=== PATIENT | female | born 1980 | race Caucasian/White ===

== ENCOUNTER 2018-10-17 13:14 | Emergency (ER) | payer OTHER ==
[2018-10-17] MEDS ORDERED: ONDANSETRON ODT 4 MG TAB PO STA (13:49)
--- NOTE | 2018-10-17 13:52 | ED ---
General Adult HPI - General Chief complaint: Head Injury Stated complaint: [facility]-Head injury Time Seen by Provider: 10/17/18 13:20 Source: patient, RN notes reviewed Mode of arrival: wheelchair Limitations: no limitations - History of Present Illness Initial comments: This a 37-year-old female presents emergency Department complaining of headache and vomiting after she struck her head this morning. Patient states she bent over and there was a metal box and she hit the corner of her forehead and ever since then he's had a significant headache anteriorly and vomiting 2. Patient denies any neck injury patient denies numbness weakness. Patient states she was not dazed at the time she did not lose consciousness. Patient denies any other symptoms at this time. She states prior to this event she was not nauseous at all. - Related Data Previous Rx's Medication Instructions Recorded Ibuprofen [Motrin] 600 mg PO Q6HR PRN #40 day 06/06/16 Allergies Allergy/AdvReac Type Severity Reaction Status Date / Time No Known Allergies Allergy Verified 10/17/18 13:25 Review of Systems ROS Statement: Those systems with pertinent positive or pertinent negative responses have been documented in the HPI. ROS Other: All systems not noted in ROS Statement are negative. Past Medical History Past Medical History: Asthma Additional Past Medical History / Comment(s): MIGRAINES History of Any Multi-Drug Resistant Organisms: None Reported Past Surgical History: Orthopedic Surgery Additional Past Surgical History / Comment(s): RIGHT SHOULDER, RIGHT KNEE Past Anesthesia/Blood Transfusion Reactions: Postoperative Nausea & Vomiting ( PONV) Past Psychological History: No Psychological Hx Reported Smoking Status: Never smoker Past Alcohol Use History: Occasional Past Drug Use History: None Reported - Past Family History Mother Family Medical History: Cancer Additional Family Medical History / Comment(s): CERVICAL General Exam - General Exam Comments Initial Comments: GENERAL: Patient is well-developed and well-nourished. Patient is nontoxic and well- hydrated and is in mild distress. ENT: Neck is soft and supple. No significant lymphadenopathy is noted. Oropharynx is clear. Moist mucous membranes. Neck has full range of motion without eliciting any pain. EYES: The sclera were anicteric and conjunctiva were pink and moist. Extraocular movements were intact and pupils were equal round and reactive to light. Eyelids were unremarkable. PULMONARY: Unlabored respirations. Good breath sounds bilaterally. No audible rales rhonchi or wheezing was noted. CARDIOVASCULAR: There is a regular rate and rhythm without any murmurs gallops or rubs. ABDOMEN: Soft and nontender with normal bowel sounds. SKIN: Skin is clear with no lesions or rashes and otherwise unremarkable. NEUROLOGIC: Patient is alert and oriented x3. Cranial nerves II through XII are grossly intact. Motor and sensory are also intact. Normal speech, volume and content. Symmetrical smile. MUSCULOSKELETAL: Normal extremities with adequate strength and full range of motion. LYMPHATICS: No significant lymphadenopathy is noted PSYCHIATRIC: Normal psychiatric evaluation. Limitations: no limitations Course Vital Signs 10/17/18 13:23 Temperature 97.9 F Pulse Rate 74 Respiratory 20 Rate Blood Pressure 134/85 O2 Sat by Pulse 100 Oximetry Medical Decision Making - Medical Decision Making CT of the brain shows no acute normalities. I went back into reevaluate the patient she was feeling better and no longer nauseated after the Zofran. Disposition Clinical Impression: Closed head injury Disposition: HOME SELF-CARE Instructions: Concussion (ED) Is patient prescribed a controlled substance at d/c from ED?: No Referrals: None,Stated [Primary Care Provider] - 1-2 days Time of Disposition: 15:10
--- NOTE | 2018-10-17 14:40 | CT ---
EXAMINATION TYPE: CT brain wo con DATE OF EXAM: 10/17/2018 COMPARISON: None INDICATION: [facility]-head injury DLP: 1182.4 mGycm, Automated exposure control for dose reduction was used. CONTRAST: None CT of the brain is performed utilizing 3 mm thick sections through the posterior fossa and 3 mm thick sections through the remaining calvarium. Study is performed within 24 hours of arrival to the hosp [facility]. No abnormal hyperdensity is present to suggest an acute intracranial hemorrhage. No mass lesion is evident. No acute infarcts are evident. Ventricles and sulci are appropriate for the patient age. Paranasal sinuses and mastoid air cells within the [id number] are clear. IMPRESSIONS: 1. Normal CT Brain
[2018-10-17 15:34] VITALS: BP 128/67; PULSE 77; RESP 18; TEMP 98.7
== END 2018-10-17 15:32 | disposition home or self-care (01) ==
LOC: EC 13:14
DX: S09.90XA Unspecified injury of head, initial encounter (principal); W22.8XXA Striking against or struck by other objects, initial encounter; Y92.69 Other specified industrial and construction area as the place of occurrence of the external cause; Y99.0 Civilian activity done for income or pay
CPT/HCPCS: 70450; 99283

== ENCOUNTER → 2018-10-27 | Outpatient (CLI) | payer OTHER ==
--- NOTE | 2018-10-27 16:16 | CT ---
EXAMINATION TYPE: CT brain wo con DATE OF EXAM: 10/27/2018 COMPARISON: 10/17/2018 HISTORY: Headache and vomiting after head injury x10 days ago. CT DLP: 936.[address] of the brain was performed. The ventricles, basal cisterns and sulci overlying the cerebral convexities demonstrate a normal appe arance. There is no evidence for intracranial hemorrhage or sulcal effacement. No mass effects are seen. Osseous calvarium is intact. If symptoms persist consider MRI as clinically warranted. IMPRESSION: 1. No acute intracranial process is seen at this time.
== END | disposition home or self-care (01) ==
LOC: RADCTMAIN 15:36
PROVIDERS: ATTEND Emergency Medicine
DX: S00.03XD Contusion of scalp, subsequent encounter (principal); G44.321 Chronic post-traumatic headache, intractable; F07.81 Postconcussional syndrome
CPT/HCPCS: 70450

== ENCOUNTER → 2018-11-20 | Outpatient (CLI) | payer OTHER | END | disposition home or self-care (01) | LOC: LABWHC1 17:26 | PROVIDERS: ATTEND Psychiatry & Neurology Neurology | DX: S09.90XA Unspecified injury of head, initial encounter (principal) | CPT/HCPCS: 36415; 82565; 84520 ==

== ENCOUNTER → 2018-11-22 | Outpatient (CLI) | payer OTHER ==
--- NOTE | 2018-11-23 10:17 | MR ---
EXAMINATION TYPE: MR brain wo/w con DATE OF EXAM: 11/22/2018 COMPARISON: CT brain 10/27/2018 HISTORY: CONTUSION OF SCALP, CONCUSSION, HEADACHES TECHNIQUE: Multiplanar, multisequence images of the brain and brainstem is performed without and with IV contras t, utilizing 10 mL intravenous Gadavist . FINDINGS: Diffusion weighted images demonstrate no evidence of a recent infarct or other diffusion ab normality. There is no extra-axial fluid collection. Scattered white matter hyperintensities presen t on inversion recovery T2-weighted sequences in the periventricular and subcortical white matter, ap proximately 10-15 lesions are noted. The ventricular system and cisternal spaces are normal in size a nd appearance. The brain volume is age appropriate. Midline structures demonstrate normal morphology. The craniocervical junction appears within normal limits. Post contrast images demonstrate no abnormal enhancement. The dural venous sinuses appear pa tent. The visualized sinuses are remarkable for mucosal disease in the maxillary sinuses and ethmoid air cells and the globes are intact. IMPRESSION: Nonspecific white matter hyperintensities. Mild sinus disease.
== END ==
LOC: RADMRIMAIN 18:28
PROVIDERS: ATTEND Psychiatry & Neurology Neurology
DX: R90.89 Other abnormal findings on diagnostic imaging of central nervous system (principal)
CPT/HCPCS: 70553; A9585

== ENCOUNTER 2018-11-25 12:28 | Emergency (ER) | payer BC, OTHER ==
[2018-11-25 13:00] VITALS: RESP 18
[2018-11-25] MEDS ORDERED: diphenhydrAMINE 50 MG/ML 1 ML VIAL IVP STA (13:35)
[2018-11-25] MEDS ORDERED: SODIUM CHLORIDE 0.9% 1,000 ML IV ONE (13:35)
[2018-11-25] MEDS ORDERED: KETOROLAC 30 MG/ML 1 ML VIAL IVP STA (13:35)
[2018-11-25] MEDS ORDERED: METOCLOPRAMIDE 5 MG/ML 2 ML VIAL IVP STA (13:35)
--- NOTE | 2018-11-25 13:42 | ED ---
Headache HPI - General Chief Complaint: Headache Stated Complaint: headaches/vomiting Time Seen by Provider: 11/25/18 13:17 Source: patient, RN notes reviewed Mode of arrival: ambulatory Limitations: no limitations - History of Present Illness Initial Comments: 38-year-old female sent emergency Department with chief complaint of headache. Patient states she's had on-and-off worsening migraine headaches since her head injury one month ago. Patient was seen in emergency room did have a CAT scan at that time. Patient had an MRI this past Tuesday but she does not know the results. Patient states her headache is diffuse. Her head injury was on the left side. Patient states that she was sent back to work because it felt there was just migraines and states that since her activity is increased she's had worsening headaches. Patient states she was at home from work last couple days. Patient denies any focal weakness. She does state that it seems slightly some her to a migraine. Patient was unable take any medications for headache. - Related Data Previous Rx's Medication Instructions Recorded Ibuprofen [Motrin] 600 mg PO Q6HR PRN #40 day 06/06/16 Allergies Allergy/AdvReac Type Severity Reaction Status Date / Time No Known Allergies Allergy Verified 11/25/18 13:00 Review of Systems ROS Statement: Those systems with pertinent positive or pertinent negative responses have been documented in the HPI. ROS Other: All systems not noted in ROS Statement are negative. Past Medical History Past Medical History: Asthma Additional Past Medical History / Comment(s): MIGRAINES. concussion 10/17/2018 History of Any Multi-Drug Resistant Organisms: None Reported Past Surgical History: Orthopedic Surgery Additional Past Surgical History / Comment(s): RIGHT SHOULDER, RIGHT KNEE Past Anesthesia/Blood Transfusion Reactions: Postoperative Nausea & Vomiting ( PONV) Past Psychological History: No Psychological Hx Reported Smoking Status: Never smoker Past Alcohol Use History: Occasional Past Drug Use History: None Reported - Past Family History Mother Family Medical History: Cancer Additional Family Medical History / Comment(s): CERVICAL General Exam Limitations: no limitations General appearance: alert, in no apparent distress Head exam: Present: atraumatic, normocephalic, normal inspection Eye exam: Present: normal appearance, PERRL, EOMI. Absent: scleral icterus, conjunctival injection, periorbital swelling ENT exam: Present: normal exam, normal oropharynx, mucous membranes moist, TM's normal bilaterally Neck exam: Present: normal inspection, full ROM. Absent: tenderness, meningismus, lymphadenopathy Respiratory exam: Present: normal lung sounds bilaterally. Absent: respiratory distress, wheezes, rales, rhonchi, stridor Cardiovascular Exam: Present: regular rate, normal rhythm, normal heart sounds. Absent: systolic murmur, diastolic murmur, rubs, gallop, clicks Extremities exam: Present: other (Bilateral upper and lower extremity strength equal bilaterally.) Neurological exam: Present: alert, oriented X3, CN II-XII intact, reflexes normal, other (Finger to nose intact). Absent: motor sensory deficit Skin exam: Present: warm, dry, intact, normal color. Absent: rash Course Vital Signs 11/25/18 12:58 Temperature 98.0 F Pulse Rate 84 Respiratory 18 Rate Blood Pressure 123/84 O2 Sat by Pulse 98 Oximetry Medical Decision Making - Medical Decision Making 38-year-old female presented from for headache. Patient's had worsening headaches ever since her concussion. Patient had recent MRI which showed no acute abnormality. Patient was given medications for headache emergency Department if symptoms have resolved. Patient is neurologically intact. Patient will follow up with [facility]. This may be postconcussional related Disposition Clinical Impression: Headache, Post concussion syndrome Disposition: HOME SELF-CARE Condition: Stable Instructions (If sedation given, give patient instructions): Acute Headache (ED ) Additional Instructions: Please return to the Emergency Department if symptoms worsen or any other concerns. Is patient prescribed a controlled substance at d/c from ED?: No Referrals: None,Stated [Primary Care Provider] - 1-2 days Time of Disposition: 14:58
[2018-11-25 15:07] VITALS: BP 145/96; PULSE 65; TEMP 97.2
== END 2018-11-25 15:15 | disposition home or self-care (01) ==
LOC: EC 12:28
DX: F07.81 Postconcussional syndrome (principal)
CPT/HCPCS: 99283; 96374; 96375 ×2; 96361; J1200; J2765; J1885